=== PATIENT | male | born 1975 | race Caucasian/White ===

== ENCOUNTER 2019-09-26 17:20 | Emergency (ER) | payer SELFPAY ==
--- NOTE | 2019-09-26 17:22 | EKG12_ITS ---
Test Reason : ELECTRIC SHOCK Blood Pressure : / mmHG Vent. Rate : 095 BPM Atrial Rate : 095 BPM P-R Int : 134 ms QRS Dur : 084 ms QT Int : 356 ms P-R-T Axes : 058 055 058 degrees QTc Int : 447 ms Poor data quality, interpretation may be adversely affected Sinus rhythm with occasional Premature ventricular complexes Otherwise normal ECG Confirmed by MATILDE FERMIN, LINDA ([id number]), newspaper photo editor BARRIE RICO ([id number]) on 09/29/2019 11:21:25 AM Referred By: SONIA Confirmed By:LINDA CLAYTON MD
--- NOTE | 2019-09-26 17:25 | NURSING ---
NO OLD EKGS
[2019-09-26 17:27] VITALS: BP 174/92; BP 174/96; PULSE 82; RESP 13; RESP 17; TEMP 37.4; O2SAT 98; BMI 26.3
--- NOTE | 2019-09-26 18:03 | ED.DCSUM_ITS ---
- ER Visit Summary Date of Service: 09/26/19 Chief Complaint: Shocked History of Present Illness: The patient is a 44 M with no primary care physician. He reports that he was shoving a baseboard heater back into a wall when he was shocked to both hands and his left knee. Reports is lasted a few seconds. Denies any loss of consciousness. No change in his hearing. This was with 110 V. He reports that his hands felt weak for approximately 20 minutes following this. They now feel normal. He reports that he feels like his back cramped up. He has pain there that is 2 out of 10 in severity now. He denies any other complaints. Physical Examination: Vitals: Stable. Afebrile. General: Well-nourished and well-developed. Head: Normocephalic atraumatic. Neck: Supple, no lymphadenopathy. No JVD. Nontender. Cardiovascular: Regular rate and rhythm. No murmurs. Respiratory: No respiratory distress. Clear to auscultation bilaterally. Abdominal: Soft, nontender, nondistended, normal bowel sounds. No guarding, rebound, or peritoneal signs. Back: Nontender. Extremities: Nontender, no edema. Skin: Normal color, no rash. No webb. Neurologic: Alert and oriented ?3. Cranial nerves II through XII are intact. Normal strength and sensation. Psych: Normal affect. Test Results: EKG is sinus at 95. Nonspecific ST changes. Emergency Department Course and Treatment: Patient's resting comfortably without complaint. He refused pain medication. Treatment Plan: Patient will be discharged with symptomatic care. Instructed to follow-up with Dr. Juares as needed. Return to the emergency department for any worsening symptoms. Disposition: To home in improved and stable condition. Impression: 1 1. Electrical shock to hands bilaterally. This note was generated with OpenPortal dictation software. It may contain incorrect words, spelling, and punctuation that were not noted in review of the chart prior to signing ED Disposition - Plan for ED Patient: Disposition: Home or Assisted Living Instructions: First Aid: Electrical Shocks Referrals: Elmo Juares DO [STAFF PHYSICIAN] - As Needed
== END 2019-09-26 18:30 | disposition home or self-care (01) ==
PROVIDERS: Emergency Provider Emergency Medicine
DX: T75.4XXA Electrocution, initial encounter (principal); R53.1 Weakness
CPT/HCPCS: 93005; 99282

== ENCOUNTER 2021-02-22 21:40 | Emergency (ER) | payer SELFPAY ==
[2021-02-22 21:41] VITALS: BP 148/100; PULSE 85; RESP 16; TEMP 35.8; O2SAT 99; BMI 23.0
--- NOTE | 2021-02-22 23:06 | EX.ED.DYSGE1 ---
HPI History of Present Illness Chief Complaint: Burn Informant: patient and spouse/S.O. Narrative Narrative: 3 days ago patient had a burn to his left arm. This was a burn from the metal grate protecting a right work light. He states this evening it seems to be burning more and getting more red and swollen. Nothing makes it better or worse. He has no fevers chills nausea vomiting or systemic symptoms. Last tetanus is unknown. He denies any medical problems No medications No allergies No recent surgeries Non-smoker lives with significant other and does work full-time. PFSH PFSH Home Medications cephalexin 500 mg PO Q6H 10 Days #40 cap 02/22/21 [Rx Last Taken Unknown] Allergy/AdvReac Type Severity Reaction Status Date / Time No Known Allergies Allergy Verified 02/22/21 21:43 Social History (Updated 02/22/21 @ 23:[address] Casper Damon MD) household members: significant other current occupational status: employed Smoking Status: Never smoker ROS ROS ED Constitutional Constitutional ED: Denies chills or fever(s) ENT ENT ED: Denies sore throat Respiratory/Chest Respiratory/Chest: Denies dyspnea Gastrointestinal Gastrointestinal: Denies nausea or vomiting Integumentary Reports rash and other Details: See history of present illness. Neurologic Neurologic: Denies paresthesias Endocrine Endocrinology: Denies polydipsia or polyuria Allergic/Immunologic Allergic/Immunologic ED: Denies urticaria EXAM Physical Exam Const Vital Signs: 02/22/21 21:41 02/22/21 23:02 Temperature 96.5 F L Temperature Source Temporal Pulse Rate 85 Respiratory Rate 16 Respiratory Effort Normal Non-Labored Respiratory Depth Normal Respiratory Pattern Normal Blood Pressure 148/100 H Blood Pressure Mean 116 Pulse Ox 99 Oxygen Delivery Method Room Air Positive well nourished and well developed General Appearance ED: well developed and NAD HEENT Negative for trauma Eyes General Eye ED: Negative for scleral icterus Resp normal respiratory effort Auscultation: Negative for wheezes Extremity Extremity Narrative: Patient has multiple linear webb from parallel pieces of metal on his left volar forearm. There is some localized swelling and erythema. No lymphangitic streaking proximally. No proximal lymph nodes. Mild serous drainage from a few of these burn areas. Neuro Sensorium / Orientation: alert Psych mental status grossly normal Mood & Affect: Negative for depressed Skin Skin Narrative: Burn as above. Lesions: lesion noted Wounds: wounds noted MDM MDM MDM Narrative Medical decision making narrative: Patient with nurse updated. With his sudden development redness or discomfort I will treat with Keflex. We discussed wound care cleansing dressing to keep clean reasons to return and follow-up. Discharge Plan Triage Chief Complaint: Burn ED Provider: Casper Damon Dx/Rx/DC Orders Clinical Impression: Burn of second degree of left forearm, initial encounter Instructions: ED Burn, Second-Degree Prescriptions: New cephalexin 500 mg capsule 500 mg PO Q6H 10 Days Qty: 40 RF: 0 Primary Care Provider: Care Physician,No Primary Referrals: Wero Quach MD [STAFF PHYSICIAN] - 3-5 Days if not improving Care Physician,No Primary [Primary Care Provider] - Disposition Disposition: Home, Self Care
[2021-02-22] MEDS: Diphth,Pertuss(Acell),Tet Vac 0.5 ML Vial IM (23:32)
[2021-02-22] MEDS: Cephalexin 250 MG Capsule 500 MG PO (23:32)
== END 2021-02-22 23:44 | disposition home or self-care (01) ==
PROVIDERS: Emergency Provider Emergency Medicine
DX: T22.212A Burn of second degree of left forearm, initial encounter (principal)
CPT/HCPCS: 90471; 90715; 99283

== ENCOUNTER → 2024-08-07 | Outpatient (CLI) | payer OTHER, SELFPAY ==
--- NOTE | 2024-08-07 18:22 | CT_ITS ---
PROCEDURE: ABDOMEN/PELVIS WITHOUT CONT 08/07/2024 REASON FOR EXAM: UMBILICAL HERNIA TECHNIQUE: Abdomen CT without intravenous contrast. Coronal and Sagittal reconstruction series were provided. One or more dose reduction techniques were used (e.g., Automated exposure control, adjustment of the mA and/or kV according to patient size, use of iterative reconstruction technique. RADIATION DOSE SUMMARY: CTDlvol: 13.13 mGy DLP: 697.45 mGycm COMPARISON: None. COMPARISON: None. FINDINGS: The lung bases are clear. The liver, adrenal glands, gallbladder, kidneys, pancreas and spleen appear within limits on noncontrast imaging. Mild abdominal aortic infrarenal atherosclerotic calcification. No aneurysm. No retroperitoneal, pelvic or inguinal adenopathy. No bowel dilation or free air. Normal caliber appendix without secondary signs. The bladder appears within limits. No free fluid. Prostate appears within limits. Just above the umbilicus is a supraumbilical midline ventral hernia containing fat with mild associated fat stranding. Mouth of the hernia defect measures 3 x 2.7 cm. Axial 57, sagittal 80 and coronal 100. There is mild stranding of the fat within the hernia and just deep to the hernia mouth. No bowel is present within the hernia. L5-S1 spondylosis/discogenic change. For nomenclature purposes there is a partially lumbarized sacral segment. CT/Abdomen/Pelvis without Cont IMPRESSION: Supraumbilical midline ventral hernia containing only fat with some associated areas of fat stranding as described above. May clinically correlate for focal tenderness, reducibility, signs and symptoms of possible fat strangulation or incarceration. Reading Location: [id number]
== END | disposition home or self-care (01) ==
PROVIDERS: PCP Family Medicine; Referring Provider Surgery; Visit Provider Surgery
DX: K42.9 Umbilical hernia without obstruction or gangrene (principal)
CPT/HCPCS: 74176

== ENCOUNTER 2024-08-24 09:30 | Day surgery (SDC) | payer OTHER, SELFPAY ==
--- NOTE | 2024-08-18 13:26 | EKG12_ITS ---
Test Reason : PREOP Blood Pressure : */* mmHG Vent. Rate : 66 BPM Atrial Rate : 66 BPM P-R Int : 116 ms QRS Dur : 88 ms QT Int : 392 ms P-R-T Axes : -3 59 14 degrees QTcB Int : 410 ms Normal sinus rhythm Normal ECG Confirmed by MATILDE FERMIN, LINDA ([id number]), assignment editor LAURA SINGH ([id number]) on 08/19/2024 7:19:54 AM Referred By: Gilberto Soto Confirmed By: LINDA CLAYTON MD
--- NOTE | 2024-08-20 13:23 | PAT.ANE_ITS ---
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 When Was Last Pacemaker Check QUESTION #4 FULL TEXT: You/Your Family Experience fever (hyperthermia) with Anesthesia Last Oral Intake Last Oral intake: Last Oral Intake NPO since Meds taken in AM with sips of water? Meds patient instructed to take am of surgery PONV PONV - millstone cleaner: PONV - millstone cleaner Female No 08/14/24 09:33 HX of Motion Sickness No 08/14/24 09:33 HX of N/V After Surgery No 08/14/24 09:33 Non-Smoker Yes 08/14/24 09:33 Duration of Surgery greater Yes 08/14/24 09:33 than 60 minutes Number of Risk Factors 2 08/14/24 09:33 PONV Score Moderate Risk 08/14/24 09:33 Height & Weight Height & Weight: Anesthesia: Height & Weight Height 5 ft 11 in 08/12/24 08:20 Respiratory Assessment Respiratory Assessment - millstone cleaner: Respiratory Tract Infection Hx - millstone cleaner Hx Respiratory Tract Infection No 08/14/24 09:33 STOP Sleep Apnea STOP Sleep Apnea - millstone cleaner: STOP Sleep Apnea - millstone cleaner Hx Hypertension No 08/14/24 09:33 Hx Sleep Apnea No 08/14/24 09:33 CPAP BIPAP Do you snore loudly (louder No 08/14/24 09:33 than talking or can be heard Do you often feel tired/ No 08/14/24 09:33 fatigued/ sleepy during daytime? Has anyone observed you stop No 08/14/24 09:33 breathing during sleep? STOP Results Negative 08/14/24 09:33 QUESTION #5 FULL TEXT : Do you snore loudly (louder than talking or can be heard through closed doors)? 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 Specify any problems Hx of Preganancy in last 3 No 08/14/24 09:33 Months Nurse Filling Out Transfusion JZOLLINGE 08/14/24 09:33 & Questions: Date: 08/14/24 08/14/24 09:33 Time: 09:35 08/14/24 09:33 Patient unable to answer at this time (ie. confused, unrespo /Reproduction History /Reproductive History - millstone cleaner: /Reproductive Hx- millstone cleaner Hx Now No 08/14/24 09:33 Gestational Age (in weeks): EDC: Hx Hx Para Hx Section SAB No 08/14/24 09:33 [facility] Medical History (Updated 08/14/24 @ 09:33 by Brisa Crane) Alcohol use Marijuana use Non-smoker History of rheumatic fever Ventral hernia Home Medications ?Medication ?Instructions ?Recorded ?Last Taken ?Type naltrexone 50 mg tablet 50 mg PO QDAY 07/30/24 Unkno wn History Allergy/AdvReac Type Severity Reaction Status Date / Time No Known Allergies Allergy Verified 08/14/24 09:25 Social History household members: significant other current occupational status: employed Smoking Status: Never smoker alcohol intake: former Audit: Pertinent Findings Pertinent Findings EKG Perinent findings: August 18, 2024. Normal sinus rhythm. Recommendation Anesthesia Recommendation Anesthesia recommendation: OPTIMIZED for anesthesia
[2024-08-24] VITALS (9 sets, daily range): BP systolic 122–140; BP diastolic 75–93; PULSE 55–85; RESP 16–24; TEMP 36.2–37.2; O2SAT 92–100; BMI 26.4
--- NOTE | 2024-08-24 09:40 | PCM.PRE.AN2 ---
ASA Classification* ASA Classification ASA Classification: 2 Assessment & Plan Anesthesia* Anesthesia Assessment Anesthesia Assessment: Discussed sedation and/or anesthesia options, risks, benefits, and alternatives with patient/parents/legal guardian/POA. Questions invited. The patient/parents/legal guardian/POA seems to understand and agrees to proceed with anesthesia plan. Reviewed the physical assessment, medical history, allergy history and patient home medications list prior to surgery/procedure/anesthetic and documented any changes. Performed airway and anesthesia risk assessments. 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 When Was Last Pacemaker Check QUESTION #4 FULL TEXT: You/Your Family Experience fever (hyperthermia) with Anesthesia Last Oral Intake Last Oral intake: Last Oral Intake NPO since Meds taken in AM with sips of water? Meds patient instructed to take am of surgery PONV PONV - plastics process hand: PONV - plastics process hand Female No 08/14/24 09:33 HX of Motion Sickness No 08/14/24 09:33 HX of N/V After Surgery No 08/14/24 09:33 Non-Smoker Yes 08/14/24 09:33 Duration of Surgery greater Yes 08/14/24 09:33 than 60 minutes Number of Risk Factors 2 08/14/24 09:33 PONV Score Moderate Risk 08/14/24 09:33 Height & Weight Height & Weight: Anesthesia: Height & Weight Height 5 ft 11 in 08/12/24 08:20 Respiratory Assessment Respiratory Assessment - plastics process hand: Respiratory Tract Infection Hx - plastics process hand Hx Respiratory Tract Infection No 08/14/24 09:33 STOP Sleep Apnea STOP Sleep Apnea - plastics process hand: STOP Sleep Apnea - plastics process hand Hx Hypertension No 08/14/24 09:33 Hx Sleep Apnea No 08/14/24 09:33 CPAP BIPAP Do you snore loudly (louder No 08/14/24 09:33 than talking or can be heard Do you often feel tired/ No 08/14/24 09:33 fatigued/ sleepy during daytime? Has anyone observed you stop No 08/14/24 09:33 breathing during sleep? STOP Results Negative 08/14/24 09:33 QUESTION #5 FULL TEXT : Do you snore loudly (louder than talking or can be heard through closed doors)? Tobacco Use History Tobacco Use History - plastics process hand: Tobacco Use History - plastics process hand Tobacco Use Smoking Status Never smoker 08/14/24 09:33 Hx Tobacco Use No 08/14/24 09:33 Years Smoking Packs Smoked per Day Smoking Cessation Date was within the last 15 years Hx Smoking Cessation Date Hx Smoking Cessation Counseling Hematologic Medial History Hematologic Hx - plastics process hand: Hematologic Medical Hx - clinical documentation spec Hx of Blood Transfusion No 08/14/24 09:33 Hx of Transfusion in last 3 No 08/14/24 09:33 Months Date of Last Transfusion (if within last 3 months) Ever experience any problems No 08/14/24 09:33 with transfusion(s)? Specify any problems Hx of Preganancy in last 3 No 08/14/24 09:33 Months Nurse Filling Out Transfusion JZOLLPAVAN 08/14/24 09:33 & Questions: Date: 08/14/24 08/14/24 09:33 Time: 09:35 08/14/24 09:33 Patient unable to answer at this time (ie. confused, unrespo /Reproduction History /Reproductive History - plastics process hand: /Reproductive Hx- plastics process hand Hx Now No 08/14/24 09:33 Gestational Age (in weeks): EDC: Hx Hx Para Hx Section SAB No 08/14/24 09:33 Active Medications Active Medications: Current Medications Generic Name Dose Route Start Last Admin Trade Name Freq PRN Reason Stop Dose Admin Cefazolin Sodium 2 gm/ N/A 20 mls @ 400 mls/hr 08/24/24 11:00 IV 08/24/24 11:02 PREOP [facility] Medical History Alcohol use Marijuana use Non-smoker History of rheumatic fever Ventral hernia Home Medications ?Medication ?Instructions ?Recorded ?Last Taken ?Type naltrexone 50 mg tablet 50 mg PO QDAY 07/30/24 Unknown History Allergy/AdvReac Type Severity Reaction Status Date / Time No Known Allergies Allergy Verified 08/14/24 09:25 Social History household members: significant other current occupational status: employed Smoking Status: Never smoker alcohol intake: former Review of Systems (Anesthesia) ROS Narrative System reviewed and no additional complaints, except as documented.
[2024-08-24] MEDS: 0.9% Normal Saline (1000mL) 1,000 ML 15 ML IV (10:09)
--- NOTE | 2024-08-24 10:39 | PCM.HP.BLA ---
History and Physical Date of Admission: 08/24/24 Intake Vital Signs 07/30/2513:54 08/13/2507:20 Height 5 ft 11 in 5 ft 11 in Weight: 190 lb 6 oz 190 lb BMI 26.5 26.4 BP 124/71 H 149/87 H Blood Pressure Location Rt brachial Rt brachial Position Sitting Sitting Respiration 18 18 Pulse 88 73 Pulse Source Monitor Monitor Temp 97.6 F L 97.2 F L Temp Source Temporal Temporal Pulse Oximetry (%) 99 99 Oxygen Delivery Method room air room air Intake Visit Reasons: DISCUSS ABD CT, SURGERY- self pay Chief Complaint: discuss abd ct, surgery- self pay Is patient in pain?: No Allergies No Known Allergies Allergy (Verified 08/12/24 08:21) Medications ?Medication ?Instructions ?Recorded ?Confirmed ?Type naltrexone 50 mg tablet 50 mg PO QDAY 07/30/24 08/12/24 History PFSH Medical History (Updated 08/12/24 @ 08:20 by Jayda Bhandari LPN) Ventral hernia Social History household members: significant other current occupational status: employed Smoking Status: Never smoker alcohol intake: former HPI HPI HPI: Patient is a 49-year-old male here following up for his ventral hernia. We obtained a CT scan and he is here to discuss surgery. He has no further symptoms since his last visit. ROS General General: No weight change, appetite, fatigue, colon cancer, breast cancer or weakness HEENT HEENT: No difficulty swallowing, eye injury, eye surgery, swollen glands or hoarseness Endo Endocrine: No thyroid disease, diabetes mellitus, thyroid cancer, Hair loss, heat intolerance or cold intolerance Skin Skin: No rash or changing moles Musc Musculoskeletal: No back problems, arthritis, rheumatoid arthritis, gout or joint pain Cardio Cardiovascular: No murmur, pacemaker, heart disease, atrial fibrillation, high blood pressure, heart attack, heart stent, palpitations, shortness of breath with exertion or chest pain Psych Psychiatric: No depression, anxiety or hearing voices Resp Respiratory: No shortness of breath, No sleep apnea, No cough, No COPD, No asthma, No emphysema and No wheezing Gastro Gastrointestinal: No abdominal pain, No nausea or vomiting, No diarrhea, No constipation, No blood in stool, No acid reflux, No hemorrhoids, No ulcers, No gallbladder problem and No black,tarry stools Rashad Hematologic: No blood thinners, No blood disorders, No bleeding, No anemia and No blood clots Neuro Neurologic: No numbness, No tingling and No weakness Exam Const General: cooperative Orientation: alert and oriented x3 HENMT Head: normal to inspection Neck Neck: normal visual inspection and full ROM Chest Chest palpation & inspection: normal inspection of the chest Resp Effort & Inspection: normal respiratory effort Auscultation: clear to auscultation bilaterally Cardio Rate: regular rate Rhythm: regular rhythm GI Inspection: non-distended Palpation: soft, hernia ventral and nontender Skin General: no rashes or lesions noted Neuro General: patient alert and patient oriented x3 Extrem General: full ROM Psych Appearance: grossly normal Mental Status: mental status grossly normal Assessment and Plan Assessment and Plan (1) Ventral hernia: Status: Acute Plan: I reviewed the patient's CT scan with him. The patient has a ventral hernia in the neck appears to be few centimeters in diameter. I discussed performing a laparoscopic hybrid approach for repair of this ventral hernia hernia with mesh. I discussed the procedure in detail as well as the risks including but not limited to bleeding, infection, injury to underlying bowel or other organs. Patient understands all the risks and is willing to proceed. Gilberto Soto MD Pager: [facility] [address] [place] [address], [address] [place] [address] Office: I have examined the patient and the H&P has been reviewed. There are no clinical changes since date of exam.
--- NOTE | 2024-08-24 11:00 | HERN_PTH ---
PATIENT: SURINDER ROCHA LOC: [facility] [place] U#:[id number] AGE/SX: 49/M ROOM: RE08/24/[address]: Dr. Gilberto Soto MD : [id number] BED: DIS: 08/24/2024 SPEC #: [id number] RECD: 08/24/24 13:40 STATUS: RIRI RECedric #: [id number] MIKY: 08/24/24 11:[address]: Gilberto Soto DEPT: SURGICAL PATHOLOGY RECD BY: Med Massey ENTERED: 08/24/24 13:40 SP TYPE: Hernia OTHR DR: Jeni Grier, [facility], DO Tissues: A - HERNIA Procedures: Surgery Specimen Level II HEADER OPERATION: Laparoscopic hybrid ventral hernia with mesh PRE-OP DIAGNOSIS: Ventral hernia TISSUE SUBMITTED: A- Hernia sac MICROSCOPIC DIAGNOSIS A. Hernia sac, ventral, laparoscopic excision: * Fibroadipose tissue consistent with hernia sac. MICROSCOPIC DESCRIPTION Slides are reviewed. GROSS DESCRIPTION A. Received in formalin in a container labeled with the patient's name, date of , and hernia sac is an 8.7 x 5.2 x 2.3 cm semisaccular portion of red-easton, cauterized soft tissue. Serial sections reveal easton-yellow, homogenous surfaces with no hemorrhage or necrosis identified. Newspaper Delivery Driver sections are submitted in A1. [facility] 08-24-2024 CPT:11033
[2024-08-24] MEDS: Cefazolin 2 GM in Syringe IV (11:15)
[2024-08-24] MEDS: BUPIVACAINE LIPOSOME/PF 20 ML VIAL OPERA.SITE (11:54)
--- NOTE | 2024-08-24 12:14 | OP.PCM_ITS ---
Operative Report (Standard) Operative Information Date of Procedure: 08/24/24 Pre-Operative Diagnosis: Ventral hernia Post-Operative Diagnosis: Ventral hernia 4 cm Surgery/Procedure Performed: Laparoscopic hybrid ventral hernia repair with mesh slat twister: Yes Machine Bobbin Winder: Tasneem Roberts Tasks completed by administrative assistant receptionist: Opening, Closing and Retracting Type of Anesthesia: General/Regional RN Documented Start/Stop Times: Operation Date: 08/24/24 11:00 Case Time Into Pre-Op 08/24/24 09:40 Out of Pre-Op 08/24/24 11:09 Anesthesia Start 08/24/24 11:10 Into Room 08/24/24 11:10 Procedure Start 08/24/24 11:30 Procedure End 08/24/24 12:10 Procedure Start Time: 11:30 Procedure Stop Time: 12:10 Select all DRAINS/GRAFTS/IMPLANTS that apply: Implanted device Implanted device details: Ventralight ST mesh Estimated Blood Loss: 20 Specimen collected: Yes Description of specimen(s) removed: Hernia sac Description of surgery: Patient was brought back to the operating room and general anesthesia was induced. The abdomen was prepped and draped in usual sterile fashion. Midline incision was made superior to the umbilicus and deepened to the hernia sac. The hernia sac was circumferentially dissected free using electrocautery. Hernia sac was then opened and ensure that there was no bowel inside. The hernia sac was then amputated and sent for pathology. Next the anterior fascia was closed with interrupted 0 PDS sutures in a transverse fashion leaving 1 suture clamped. Through this opening a 12 mm port was placed and the abdomen was insufflated to 15 mmHg. Camera was placed into the abdomen and on the right side two 5 mm ports were placed. Next a tap block was performed bilaterally using Exparel saline mix. Next the mesh was placed through the 12 mm port into the abdomen and then the 12 m port was removed and the stitch was closed. Next the balloon was insufflated and the mesh was held up to the anterior abdominal wall. Using the secure strap tacker the mesh was tacked to the anterior abdominal wall in 4 quadrants and then the balloon was removed in its entirety. Next the mesh was tacked to the anterior fascia in a circumferential fashion using secure strap tacks. Next the abdomen was allowed to desufflate and the ports were removed. The incisions were injected with local anesthetic. The incisions were closed with interrupted 4-0 Monocryl sutures. Steri-Strips and bandages were applied. Patient was awoken and taken to PACU in stable condition. Surgical Findings: Ventral hernia Complications Complications: No Admit VTE Documentation VTE Mechan Device Prophylaxis: SCD's
--- NOTE | 2024-08-24 12:19 | DCINST_ITS ---
Discharge Instructions Procedure Hernia Diet Discharge Diet: Light diet - advance as tolerated Activity Discharge Activity: May Not Drive (for 2-3 days or while taking narcotic pain meds.) and May Shower (with the bandage in place 1-2 days after surgery.) Lifting Restrictions: 20 pounds for 6 weeks. Additional Activity Instructions:: Climbing stairs is fine, walking is encouraged. Sitting in bed may be uncomfortable. Sitting up using your lateral muscles (sitting up sideways) is usually more comfortable. Do not drive, work heavy equipment of sign legal documents for 24 hours. Pain medications may cause nausea, you should typically eat light foods as you take your pain medications. Pain medications may also cause constipation. If you have difficulty with this, discuss with your doctor. Alternate Tylenol and ibuprofen for pain control, oxycodone for breakthrough pain Dressing / Incision Call your doctor if your incision/area has: Continuous Slow Oozing, Sudden Increased Bleeding, Increased Pain/ Swelling, Increased Redness and Foul Smelling Discharge Call your doctor if you observe: Fever of 101 or Higher Suture Line Care: Avoid Pulling/Pushing and Avoid Pinching/Bending Remove Dressing in: 2 days (Remove clear bandages in 2 days, remove Steri-Strips in 7 to 10 days.) Cleanse incision/area with: Soap & Water Follow Up Care Please Follow Up With: Gilberto Soto MD When: Please call to schedule 2 week follow up appointment. [phone] Test Results: Test results from this visit will be discussed in further detail at your follow- up appointment, if applicable. Discharge Plan Admission Attending Provider: Gilberto Soto Primary Care Provider: Jeni Grier Instructions Print Language: Maltese Discharge Orders/Prescriptions Prescriptions: New oxycodone 5 mg Tablet 5 - 10 mg PO Q4H PRN PRN (Reason: Pain Score 4-10) 5 Days Qty: 20 0RF No Action naltrexone 50 mg tablet 50 mg PO QDAY Referrals / Follow Up: Jeni Grier, DO [Primary Care Provider] - Disposition Disposition (needs filled in before D/C Order can be placed): Home, Self Care
--- NOTE | 2024-08-24 12:21 | PCM.POST.ANE ---
Anesthesia: Postop Eval I Current Vital Signs Temperature: 97.1 F Pulse Rate: 61 Blood Pressure: 131/75 Respiratory Rate: 24 Pulse Ox: 98 Oxygen Delivery Method: Room Air Assessment Airway patent: Yes Spontaneous unlabored respirations: Yes Mental status: Awake and Calm nausea: No Vomiting: No Anesthesia Complication: No Fluid Hydration Crystalloid volume administer (ml): 1,100 Total IV fluid infused: 1,100 Progress Note Anesthesia document: Postop Eval 1 completed: Yes
--- NOTE | 2024-08-24 12:53 | POSTOPAN2_ITS ---
Anesthesia Postop Eval I Sum Postop Eval Completion status Anesthesia document: Postop Eval 1 completed: Yes Anesthesia Postop Eval I Summary Anesthesia Postop Eval I Summary: Anesthesia Postop Eval I: Assessment Summary Airway patent Yes 08/24/24 12:22 [email or web address] Spontaneous unlabored Yes 08/24/24 12:22 [email or web address] respirations Mental status Awake,Calm 08/24/24 12:22 [email or web address] nausea No 08/24/24 12:22 [email or web address] Vomiting No 08/24/24 12:22 [email or web address] Anesthesia Postop Eval I: Fluid Summary Crystalloid volume administer 1,100 08/24/24 12:22 [email or web address] (ml) Colloids volume administered ( ml) Blood Product volume administered (ml) Total IV fluid infused 1,100 08/24/24 12:22 [email or web address] Anesthesia Postop Eval I: Summary Notes Anesthesia Complication No 08/24/24 12:22 [email or web address] Anesthesia Complication Comment: Post-operative progress note Anesthesia: Postop Eval II Evaluation Mental status: Awake Pain Level: 0 nausea: No Vomiting: No
--- NOTE | 2024-08-24 12:53 | PCM.POSTANE2 ---
Anesthesia Postop Eval I Sum Postop Eval Completion status Anesthesia document: Postop Eval 1 completed: Yes Anesthesia Postop Eval I Summary Anesthesia Postop Eval I Summary: Anesthesia Postop Eval I: Assessment Summary Airway patent Yes 08/24/24 12:22 [email or web address] Spontaneous unlabored Yes 08/24/24 12:22 [email or web address] respirations Mental status Awake,Calm 08/24/24 12:22 [email or web address] nausea No 08/24/24 12:22 [email or web address] Vomiting No 08/24/24 12:22 [email or web address] Anesthesia Postop Eval I: Fluid Summary Crystalloid volume administer 1,100 08/24/24 12:22 [email or web address] (ml) Colloids volume administered ( ml) Blood Product volume administered (ml) Total IV fluid infused 1,100 08/24/24 12:22 [email or web address] Anesthesia Postop Eval I: Summary Notes Anesthesia Complication No 08/24/24 12:22 [email or web address] Anesthesia Complication Comment: Post-operative progress note Anesthesia: Postop Eval II Evaluation Mental status: Awake Pain Level: 0 nausea: No Vomiting: No
[2024-08-24] MEDS: oxyCODONE 5 MG Tablet PO (14:25)
== END 2024-08-24 14:45 | disposition home or self-care (01) ==
LOC: SDC 09:31 → AC 09:32
PROVIDERS: PCP Family Medicine; Referring Provider Surgery; Visit Provider Surgery
PROC: 0WQF4ZZ Repair Abdominal Wall, Percutaneous Endoscopic Approach (ICD-10-PCS; CPT 49593; principal; 2024-08-24 10:40)
DX: K43.9 Ventral hernia without obstruction or gangrene (principal)
CPT/HCPCS: 49593; 00832; 88302; 93005; J0666; J2405